=== PATIENT | female | born 1995 | race Hispanic/Latino ===

== ENCOUNTER 2020-12-20 02:38 | Emergency (ER) | payer MEDICAID, OTHER ==
[~2020-12-20] VITALS: Ht 167.6 cm; Wt 81.6 kg
[2020-12-20] MEDS ORDERED: ONDANSETRON 4MG INJ IVP ONE (03:00)
[2020-12-20 03:05] VITALS: BP 128/74
[2020-12-20 03:06] LABS: MEAN CORPUSCULAR HEMOGLOBIN 30.6 pg (27.0-33.0); MEAN CORPUSCULAR HGB CONC 33.4 g/dL (32.0-36.0); MEAN CORPUSCULAR VOLUME 91.5 fL (79-99); RED BLOOD CELL COUNT(AUTO) 4.48 MIL/uL (4.00-5.50); RED CELL DISTRIBUTION WIDTH 13.1 % (11.0-15.5); WHITE BLOOD COUNT (AUTO) 7.1 K/uL (4.8-10.8)
[2020-12-20 03:08] LABS: APPEARANCE,URINE Clear (CLEAR); BILIRUBIN,URINE Negative (NEGATIVE); COLOR,URINE Yellow (YELLOW); GLUCOSE, URINE (UA) Negative (NEGATIVE); KETONES,URINE Negative (NEGATIVE); LEUKOCYTE ESTERASE ,URINE Negative (NEGATIVE); NITRATE,URINE Negative (NEGATIVE); OCCULT BLOOD,URINE Negative (NEGATIVE); PROTEIN,URINE Negative (NEGATIVE); UROBILINOGEN,URINE 0.2 mg/dL (0.2-1.0)
[2020-12-20 03:10] LABS: HCG,QUAL RESULT NEGATIVE (NEGATIVE)
[2020-12-20 03:19] LABS: POTASSIUM 3.2 mmol/L (3.5-5.1)
[2020-12-20 03:23] LABS: ALBUMIN 4.1 g/dL (3.5-5.0); BILIRUBIN,TOTAL 0.2 mg/dL (0.2-1.0); TOTAL PROTEIN, SERUM 7.8 g/dL (6.0-8.3)
[2020-12-20 08:00] VITALS: BP 94/38
[2020-12-20 10:00] VITALS: BP 96/58
[2020-12-20] MEDS ORDERED: THIA100P12 PO (11:42)
[2020-12-20 12:00] VITALS: BP 91/52
== END 2020-12-20 12:40 | disposition home or self-care (01) ==
LOC: EDH 02:38
DX: F10.129 Alcohol abuse with intoxication, unspecified (principal); R06.02 Shortness of breath; Z79.899 Other long term (current) drug therapy
CPT/HCPCS: 36415; 80053; 81003; 81025; 85027; 96374; 99285; J2405